=== PATIENT | female | born 1950 | race Caucasian/White ===

== ENCOUNTER → 2016-04-21 | Outpatient (CLI) | payer MEDICAID, OTHER ==
--- NOTE | 2016-04-21 11:33 | MA ---
Screening Digital Mammogram With Tomosynthesis Clinical Indications: Routine screening. Technique: Standard digital cephalocaudal and tomosynthesis mediolateral oblique projections are obt ained. The digital images were processed by the [employer] computer aided detection system. Comparison: February 2015 ,2013 and 2008 Breast density: B; There are scattered fibroglandular densities. Findings: CAD was reviewed. Possible small vague nodule with radiating architectural distortion centr al left breast (slice 41/73) the remainder of the left and right breast are stable.. Impression: Small nodule central left breast. Recommendation: Spot compression views in the CC and lateral, projection followed by ultrasound. BI-RADS 0: Needs additional imaging evaluation, left breast [facility] will send a result letter to the patient. Negative mammography should not preclude additional workup of a clinically suspicious finding. The patient's information is entered into a reminder system with a target due date for her next mammo gram.
== END ==
LOC: FIMAGING 09:57
DX: Z12.31 Encounter for screening mammogram for malignant neoplasm of breast (principal)
CPT/HCPCS: G0202

== ENCOUNTER → 2016-04-30 | Outpatient (CLI) | payer MEDICAID ==
--- NOTE | 2016-04-30 13:39 | MA ---
Diagnostic Digital Mammogram Left Breast With iCAD Analysis Reason for examination: Evaluate possible asymmetry with subtle architectural change in the central l eft breast noted on the screening tomosynthesis study April 21, 2016. Technique: Oblique and craniocaudal spot compression views are obtained. Also, a true lateral is perf ormed. The examination is processed by the iCAD computer-aided detection system. Comparison is made to older studies dating back to February 2009. Findings: A discrete abnormality does not persist on diagnostic assessment. Mild glandular asymmetrie s are seen. No suspicious microcalcifications are identified.. Impression: Mild glandular asymmetries require further evaluation, BI-RADS 0. Recommendation: Targeted left breast ultrasound which will be subsequently performed today. A verbal report was given to the patient. [facility] with send a result letter.
--- NOTE | 2016-04-30 14:07 | US ---
Left Breast Ultrasound History: Follow-up mild glandular asymmetry noted in the central left breast on diagnostic mammograph y performed earlier today. Technique: Longitudinal and transverse images were obtained utilizing a 15 MHz transducer. Examinati on is interpreted in conjunction with diagnostic mammography performed today as well as screening dig ital tomosynthesis April 21, 2016. Findings: No palpable abnormality is present. Sonographic interrogation of the central left breast de monstrates scattered fibroglandular elements. No solid or cystic mass is seen. A few mildly dilated d uctal elements are noted. Impression: Benign findings when considering mammographic and sonographic assessment, BI-RADS 2. Recommendation: Resume routine mammographic screening in one year as long as physical examination is negative.. Findings and follow-up recommendations were reviewed with the patient in detail. [facility] will send a result letter to the patient.
== END ==
LOC: FIMAGING 12:53
PROVIDERS: ATTEND Family Medicine
DX: R92.8 Other abnormal and inconclusive findings on diagnostic imaging of breast (principal)
CPT/HCPCS: G0206

== ENCOUNTER 2016-09-18 11:37 | Emergency (ER) | payer MEDICAID ==
[2016-09-18] MEDS ORDERED: CEPHALEXIN 500 MG CAP PO ONE (12:19)
--- NOTE | 2016-09-18 12:26 | EDPHY ---
H & P Stated Complaint: Right leg streakingx 3 days. Time Seen by Provider: 09/18/16 12:11 - Personal History Current Tetanus/Diphtheria Vaccine: Yes Current Tetanus Diphtheria and Acellular Pertussis (TDAP): Yes - Medical/Surgical History Hx Asthma: No Hx Chronic Respiratory Disease: No Hx Diabetes: No Hx Cardiac Disease: No Hx Renal Disease: No Hx Cirrhosis: No Hx Alcoholism: No Hx HIV/AIDS: No Hx Splenectomy or Spleen Trauma: No Other PMH: peripheral neuropathy. HTN. elevated cholesterol - Social History Smoking Status: Current some day smoker Constitutional: Initial Vital Signs Temperature (C) 36.8 C 09/18/16 11:52 Heart Rate 94 09/18/16 11:52 Respiratory Rate 15 09/18/16 11:52 Blood Pressure 117/82 H 09/18/16 11:52 O2 Sat (%) 94 09/18/16 11:52 O2 Delivery Mode Room Air Allergies/Adverse Reactions: No Known Allergies Allergy (Unverified 12/27/13 11:16) Home Medications: Medication Instructions Recorded Aspirin EC [Aspirin EC 81 mg (OTC)] 81 mg PO DAILY 12/27/13 Atenolol [Tenormin 25 mg (RX)] 25 mg PO DAILY 12/27/13 Cephalexin [Keflex] 500 mg PO TID 10 Days 12/27/13 Nortriptyline HCl [Pamelor 10 mg 10 mg PO HS 12/27/13 (RX)] Simvastatin [Zocor 20 mg (RX)] 20 mg PO DAILY18 12/27/13 Sulfamethox/Tmp 800/160 mg 1 tab PO BID@1000,2200 10 Days 12/27/13 [Bactrim Ds] Cephalexin [Keflex (RX)] 500 mg PO TID #30 cap 09/18/16 Medical Decision Making ED Course/Re-evaluation: CHIEF COMPLAINT: Streaking of right leg HISTORY OF PRESENT ILLNESS: 66-year-old immunocompetent female who is not diabetic. She has ulcers on her right foot because of fallen arches these ulcers have been chronic for years. She has a little bit of cellulitis around 1 of the ulcers the arch and then she has streaking up the medial right leg. She denies any fevers or chills or systemic illness. She denies any recent travel or pain or calf swelling or calf. She denies any injuries. She has the treadmill this morning without any difficulty however the red streaky areas are becoming slightly more painful. REVIEW OF SYSTEMS: A 10 point review of systems was performed and is negative with the exception of the elements mentioned in the history of present illness. PHYSICAL EXAM: HR, BP, O2 Sat, RR. Temp noted General Appearance: Alert, well hydrated, appropriate, and non-toxic appearing. Head: Atraumatic without scalp tenderness or obvious injury Eyes: Pupils equal, round, reactive to light and accommodation, EOMI, no trauma , no injection. Ears: Clear bilaterally, no perforation, normal landmarks Nose: Atraumatic, no rhinorrhea, clear. Throat: There is no erythema or exudates, no lesions, normal tonsils, mucus membranes moist. Neck: Supple, 2+ carotid upstroke, nontender, no lymphadenopathy. Respiratory: No retractions, no distress, no wheezes, and no accessory muscle use. Lungs are clear to auscultation bilaterally. Cardiovascular: Regular rate and rhythm, no murmurs, rubs, or gallops. Bilateral carotid, radial, dorsalis pedis, and posterior tibial pulses intact. Good capillary refill all extremities. Gastrointestinal: Abdomen is soft, nontender, non-distended, no masses, no rebound, no guarding, no peritoneal signs. Musculoskeletal: Normal active ROM of all extremities, atraumatic. Neurological: Alert, appropriate, and interactive. The patient has normal DTRs and non-focal cranial nerves, motor, sensory, and cerebellar exam. Skin: Lymphangitis from the medial right arch up to the right groin area with some shotty lymph nodes in the right groin. I cannot see any obvious source except for the ulcerations on the right foot which are chronic. She does take good care of him she is not diabetic. No rashes, good turgor, no nodules on palpation. Past medical history: Chronic foot ulcers Past surgical history: Noncontributory Family history: Noncontributory Social history: , retired, does not abuse tobacco drugs or alcohol DIFFERENTIAL DIAGNOSIS: Lymphangitis, cellulitis, trauma, bug bite, wound MEDICAL DECISION MAKING: This patient has a mild and early lymphangitis. She just noticed it a few hours ago. Most likely this is the source from the ulcer on her foot I cannot find another source but I also cannot be sure as the foot ulcer does not look terrible frankly. I will start her on Keflex 500 mg 3 times a day. I have asked her return if she gets worse at all or develops any systemic symptoms. In addition she will follow up with regular doctor in the next 2 days. Departure - Departure Disposition: Home, Routine, Self-Care Clinical Impression: Acute lymphangitis Condition: Good Instructions: Lymphangitis (ED) Additional Instructions: Follow up with your doctor in 2 days without fail return here for worse Referrals: Nery Victoria MD [Primary Care Provider] - As per Instructions Prescriptions: Cephalexin [Keflex (RX)] 500 mg PO TID #30 cap
[2016-09-18 12:58] VITALS: BP 117/76; PULSE 82; RESP 17; TEMP 98.1; O2SAT 96
== END 2016-09-18 12:57 | disposition home or self-care (01) ==
DX: L03.91 Acute lymphangitis, unspecified (principal); I10 Essential (primary) hypertension; F17.200 Nicotine dependence, unspecified, uncomplicated; Z79.82 Long term (current) use of aspirin

== ENCOUNTER 2016-10-19 09:33 | Inpatient (IN) | payer OTHER, MEDICAID ==
[2016-10-19] MEDS ORDERED: NS 500 ML IV ONE (10:05)
--- NOTE | 2016-10-19 10:12 | EDPHY ---
H & P Time Seen by Provider: 10/19/16 09:53 HPI/ROS: HPI From [facility], here for osteomyelitis of toe. 66-year-old female presents to the emergency department by private vehicle. She was sent over from [facility]. She had x-rays yesterday of her right 3rd toe secondary to an ulceration at the distal ventral aspect of the toe. The x-rays were diagnostic of osteomyelitis of the right 3rd toe. She has also had some erythema and warmth involving the medial aspect of her dorsal proximal foot and the medial aspect of the ankle. She denies fever. There is no history of trauma. She is not a diabetic. She has a history of peripheral neuropathy. ROS: Constitutional: No fever, no chills. No weakness. Eyes: No discharge. No changes in vision. ENT: No sore throat. No nasal congestion or rhinorrhea. Respiratory: No cough. No shortness of breath. Cardiac: No chest pain, no palpitations. Gastrointestinal: No abdominal pain, no vomiting, no diarrhea. Genitourinary: No hematuria. No dysuria or increased frequency with urination. Musculoskeletal: No back pain. No neck pain. As above. Skin: No rashes. As above. Neurological: No headache. No focal weakness or altered sensation. Past medical history: Peripheral neuropathy, hypertension, hyperlipidemia. Primary care is through [facility]. Social history: She is . Her is on his way. She is a smoker. Physical Exam: General Appearance: Alert, no distress. This patient is responding to questions appropriately and in full sentences. This patient appears well- hydrated and well-nourished. Eyes: Pupils equal and round no pallor or injection. No lid edema, erythema or injection. Right foot and ankle exam: Significant for a dime-sized ulceration at the tip and distal ventral aspect of the right 3rd toe with associated swelling and erythema involving that digit. She also has erythema and warmth noted on the dorsal aspect medial proximal foot spreading up through the medial aspect of the ankle. There is some warmth on palpation. No significant tenderness on palpation. The right foot is neurovascularly intact. Left foot and ankle exam: Normal. Respiratory: There are no retractions, lungs are clear to auscultation with good air movement bilaterally. Cardiovascular: Regular rate and rhythm. No murmur. Gastrointestinal: Abdomen is soft and nontender, no masses, bowel sounds normal. No focal tenderness at Burney's point. No Waite sign. Neurological: Motor sensory function is grossly intact. Cranial nerves are normal. Gait is normal. Skin: Warm and dry, no rashes. Extremities are symmetrical. All joints range without pain or impingement. Psychiatric: No agitation. No depression. Database: EKG: Imaging: Right foot and right 3rd toe x-ray series: Right 3rd toe significant for probable osteomyelitis. No acute fracture. Interpreted by me. Please see radiologist's report for further details. Procedures: Emergency department course: IV placed. Blood cultures were obtained. Imaging of the right foot obtained. Vital signs reviewed, she is afebrile, vital signs are normal. She is not in significant pain. Her medical records were reviewed. She was seen for a mild lymphangitis secondary to ulcerations on her right foot about a month ago on September 18. She was prescribed Keflex at that time. 10:45 a.m., patient has an initial venous lactate of 2.4. Otherwise she does not meet criteria for sepsis and therefore she does not meet criteria for severe sepsis even with this venous lactate. This will be repeated. Her x- rays have been reviewed by myself. She was started on IV vancomycin in the emergency department. 11:15 a.m., spoke with on-call hospitalist. Patient accepted for admission by Dr. Catherine. Patient given 1.5 g of IV vancomycin in the emergency department. Results of x-rays and blood work discussed with her and her . Need for admission discussed with her and her . They consent. Patient admitted to the hospitalist service in stable condition. 11:40 a.m., repeat venous lactate 1.6. Differential Diagnosis: The differential diagnosis on this patient includes but is not limited to osteomyelitis of the right 3rd toe, cellulitis of the right foot and right ankle , history of peripheral neuropathy. This represents a partial list of diagnoses considered. These considerations are based on history, physical exam , past history, reassessment and diagnostic testing. Smoking Status: Current some day smoker Constitutional: Initial Vital Signs Temperature (C) 36.6 C 10/19/16 09:46 Heart Rate 87 10/19/16 09:46 Respiratory Rate 16 10/19/16 09:46 Blood Pressure 114/72 10/19/16 09:46 O2 Sat (%) 94 10/19/16 09:46 O2 Delivery Mode Room Air Allergies/Adverse Reactions: No Known Allergies Allergy (Unverified 12/27/13 11:16) Home Medications: Medication Instructions Recorded Aspirin EC [Aspirin EC 81 mg (OTC)] 81 mg PO DAILY@12 12/27/13 Nortriptyline HCl [Pamelor 10 mg 10 mg PO HS 12/27/13 (RX)] Sulfamethox/Tmp 800/160 mg 1 tab PO BID@1000,2200 10 Days 12/27/13 [Bactrim Ds] Cephalexin [Keflex (RX)] 500 mg PO TID #30 cap 09/18/16 Ascorbic Acid [Vitamin C 500 mg 500 mg PO DAILY@12 10/19/16 (*)] Atenolol [Tenormin 100 mg (*)] 100 mg PO DAILY@10/19/16 Glucosamine/Chondroitin 1 each PO DAILY@10/19/16 [Glucosamine/Chondroitin (*)] Herbals/Supplements -Info Only 1 ea PO DAILY 10/19/16 [place]-3 Fatty Acids [Fish Oil 1000 1,000 mg PO DAILY@10/19/16 mg (*)] Simvastatin [Zocor] 40 mg PO DAILY@12 10/19/16 Triamterene/Hctz 75/50 [Maxzide 1 tab PO DAILY@10/19/16 75-50 mg Tab (*)] Medical Decision Making - Data Points Laboratory Results: Laboratory Results 10/19/16 10:20 10/19/16 10:20 Medications Given: Discontinued Medications Sodium Chloride (Ns) 500 mls @ 0 mls/hr IV ONCE ONE; Wide Open PRN Reason: Protocol Stop: 10/19/16 10:06 Last Admin: 10/19/16 10:35 Dose: 500 mls Vancomycin HCl 1.5 gm/ (Dextrose) 250 mls @ 166.67 mls/hr IV EDNOW ONE PRN Reason: Protocol Stop: 10/19/16 12:11 Last Admin: 10/19/16 11:18 Dose: 250 mls Departure - Departure Disposition: [facility] Clinical Impression: Right foot infection, Osteomyelitis right third toe, Cellulitis of right foot, History of peripheral neuropathy Condition: Fair
[2016-10-19 10:32] LABS: % IMMATURE GRANULYOCYTES 0.4 % (0.0-1.1); ABSOLUTE IMMATURE GRANULOCYTES 0.04 10^3/uL (0.00-0.10); ADD DIFF? NO; ADD MORPH? NO; ADD SCAN? NO; ATYPICAL LYMPHOCYTE FLAG 10 (0-99); FRAGMENT RBC FLAG 0 (0-99); HEMOGLOBIN 15.1 g/dL (12.6-16.3); LEFT SHIFT FLG 0 (0-99); LIPEMIA HEMOLYSIS FLAG 90 (0-99); MEAN CELL HEMOGLOBIN 33.9 pg (27.9-34.1); MEAN CELL HEMOGLOBIN CONCENTR. 35.1 g/dL (32.4-36.7); MEAN CELL VOLUME 96.6 fL (81.5-99.8); MEAN PLATELET VOLUME 8.9 fL (8.7-11.7); PLATELET CLUMPS FLAG 0 (0-99); PLATELET COUNT 230 10^3/uL (150-400); RED BLOOD CELL COUNT 4.45 10^6/uL (4.18-5.33); RED CELL DISTRIBUTION WIDTH 12.6 % (11.5-15.2)
[2016-10-19] MEDS ORDERED: VANCOMYCIN 1.5 GM in D5W 250 ML IV ONE (10:42)
[2016-10-19 10:49] LABS: ANION GAP 15 mEq/L (8-16); CALCIUM 9.8 mg/dL (8.5-10.4); CARBON DIOXIDE 22 mEq/l (22-31); CHLORIDE 103 mEq/L (97-110); CREATININE 0.8 mg/dL (0.6-1.0); GLOMERULAR FILTRATION RATE > 60; GLUCOSE 158 mg/dL (70-100); POTASSIUM 3.2 mEq/L (3.5-5.2); SODIUM 140 mEq/L (134-144)
[2016-10-19] MEDS ORDERED: LORazepam 0.5 MG TAB PO PRN (16:03)
[2016-10-19] MEDS ORDERED: ACETAMINOPHEN 325 MG TAB PO PRN (16:03)
[2016-10-19] MEDS ORDERED: ZOLPIDEM TARTRATE 5 MG TAB PO PRN (16:03)
[2016-10-19] MEDS ORDERED: LORazepam 2 MG/ML INJ IVP PRN (16:03)
[2016-10-19] MEDS ORDERED: oxyCODONE IR 5 MG TAB PO PRN (16:03)
[2016-10-19] MEDS ORDERED: ALBUTEROL 3 ML DEYVIAL IH PRN (16:03)
[2016-10-19] MEDS ORDERED: ONDANSETRON 4 MG/2 ML VIAL IVP PRN (16:03)
[2016-10-19] MEDS ORDERED: ONDANSETRON DISINTEGRATING 4 MG TAB PO PRN (16:03)
[2016-10-19] MEDS ORDERED: OXYCODONE/APAP 5/325 TAB PO PRN (16:03)
--- NOTE | 2016-10-19 16:33 | GHP ---
[f rep st] HISTORY AND PHYSICAL DATE OF ADMISSION: 10/19/2016 CHIEF COMPLAINT: Right 3rd toe infection. HISTORY OF PRESENT ILLNESS: A 66-year-old female with a known history of a peripheral neuropathy an d a previous history of a right 5th toe infection approximately 2 years [employer], presents with pain, swe lling and redness of her right 3rd toe. Approximately 1 month [employer], she was treated for an apparent cellulitis in this leg by her own physician with Keflex. She reports having redness ascending up th e medial aspect of the right leg from the foot. There is no history to indicate that the toes were in any way infected at that time. She took the Keflex and the problem resolved. In the interval, s he has been instructed by her utility repairer, Dr. Pierre in [place], to abrade the callus formations of her right foot which are present on the longitudinal arch and on the plantar surface. She has al so been and abrading some callus formation on her right 3rd toe of the same foot. Four days [employer], sh e again noted redness on the medial aspect of her leg and foot and at approximately the same time re dness, pain and swelling began on her right great toe. X-rays have initially indicated possible ost eomyelitis and she was referred for admission. 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 This has occurred without fever, chills, sweats or known tra cheryl other than as noted above with abrading calluses. She also has a known peripheral neuropathy si nce approximately the year 1999 of unclear etiology. The peripheral neuropathy is manifested by a l oss of sensation, a loss of soft touch and tingling and sometimes lightening electrical feelings in the evenings in her feet. For this, she takes imipramine. PAST MEDICAL HISTORY: Denies asthma, allergies, diabetes or renal problems. She does have a histor y of hypertension and hyperlipidemia. PAST SURGICAL HISTORY: History of a . ALLERGIES: None. FAMILY HISTORY: Possibly positive for early coronary artery disease in her father. It is negative for breast cancer, colon cancer, bleeding diathesis. SOCIAL HISTORY: She is , accompanied today by her . The patient does smoke cigarette s, approximately 5 and maybe 10 cigarettes per day for the last 30 years or more. At times, she has been drinking regularly on a daily basis up until 2014. She had been drinking on a daily basis but denies addiction or withdrawal symptoms. Today, she admits to having 2-3 drinks a day, approximate ly 2 or 3 times a week. She reports she does not drink daily. 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 Drugs: No use of marijuana or recreational drugs. MEDICATIONS: Include omega-3 fatty acids, glucosamine chondroitin sulfate, Maxzide 75-50 mg tablet, atenolol 100 mg, ASA 81 mg, ascorbic acid 500 mg daily, Zocor, nortriptyline 10 mg p.o. q.h.s., Kef chuy 500 mg t.i.d. and Bactrim DS 1 tablet p.o. b.i.d. PHYSICAL EXAMINATION: GENERAL: This is a pleasant, alert female who appears comfortable. VITAL SI GNS: Normal. She is afebrile with normal heart rate and respiratory rate. HEENT: Normal. NECK: Supple without meningismus. LUNGS: Clear without wheezing, rales, or rhonchi. HEART: Regular ra te and rhythm. Normal S1, S2. No murmur or gallop. ABDOMEN: Slightly overweight. Normoactive raven wel sounds. No masses, tenderness, organomegaly. EXTREMITIES: Significant for redness at approxim ately the mid calf level on the right leg. This redness then extends from the mid calf down mediall y to the dorsum of the right foot which is also red and slightly swollen. There is prominent swelli ng and erythema of the right 3rd toe. Additionally, the foot medially shows significant callus form ation on the longitudinal arch and on the plantar surface. There is no tenderness in the right ingu inal region. Pulses are 2+ at the femorals, dorsalis pedis, posterior tibial, and radials bilateral ly. LABORATORY: WBC is normal. Hemoglobin 15.5. BMP shows low potassium at 3.2. Lactate is slightly elevated at 2.4. Renal function judged to be normal. ASSESSMENT: 1. Acute cellulitis and osteomyelitis of the right foot and right 3rd toe. X-rays seem to confirm the findings of an osteomyelitis with possible air formation in the joint. She had been given a dos e of vancomycin 1.5 g, and this will be continued with levels monitored appropriately. Infectious D isease will be consulted. 2. Peripheral neuropathy manifested by lightening pains in her feet at night along with loss of sen sation to the level of the ankle in a stocking formation. It has been present for many years and wi ll continue her usual medications. 3. Hypertension. She is currently normotensive and will continue her usual medications. 4. The patient does not meet sepsis criteria. Even though her lactate is slightly elevated, this p robably represents a mild degree of dehydration. Will encourage a regular diet and fluid hydration. She is not tachypneic, tachycardic or febrile nor does she have an elevated white count. PLAN: The patient will be admitted to inpatient status. In light of the findings of osteomyelitis, she is likely to need placement of a PICC line, long-term antibiotics and possibly some debridement of this right 3rd toe. Podiatry will also be consulted. TIME BILLING: This required 50 minutes, greater than 50% to coordinate her care and arrange for con sultation. /[id number]/MODL
[2016-10-19] MEDS: NORTRIPTYLINE HCL 10 MG CAP PO SCH (20:33)
[2016-10-19] MEDS ORDERED: SULFAMETHOX/TMP 800/160 MG 1 TAB PO SCH (22:00)
[2016-10-19] MEDS: VANCOMYCIN HCL/NORMAL SALINE 250 ML IV SCH (22:20)
[2016-10-20 05:22] LABS: % IMMATURE GRANULYOCYTES 0.3 % (0.0-1.1); ABSOLUTE IMMATURE GRANULOCYTES 0.02 10^3/uL (0.00-0.10); ADD DIFF? NO; ADD MORPH? NO; ADD SCAN? NO; ATYPICAL LYMPHOCYTE FLAG 10 (0-99); FRAGMENT RBC FLAG 0 (0-99); HEMATOCRIT 39.4 % (38.0-47.0); HEMOGLOBIN 13.4 g/dL (12.6-16.3); LEFT SHIFT FLG 0 (0-99); LIPEMIA HEMOLYSIS FLAG 90 (0-99); MEAN CELL HEMOGLOBIN 33.7 pg (27.9-34.1); MEAN PLATELET VOLUME 9.3 fL (8.7-11.7); PLATELET CLUMPS FLAG 0 (0-99); PLATELET COUNT 212 10^3/uL (150-400); RED BLOOD CELL COUNT 3.98 10^6/uL (4.18-5.33); RED CELL DISTRIBUTION WIDTH 12.8 % (11.5-15.2)
[2016-10-20 05:38] LABS: ANION GAP 11 mEq/L (8-16); CALCIUM 8.6 mg/dL (8.5-10.4); CARBON DIOXIDE 25 mEq/l (22-31); CHLORIDE 109 mEq/L (97-110); CREATININE 0.8 mg/dL (0.6-1.0); GLOMERULAR FILTRATION RATE > 60; GLUCOSE 82 mg/dL (70-100); POTASSIUM 3.8 mEq/L (3.5-5.2); SODIUM 145 mEq/L (134-144)
[2016-10-20 06:31] LABS: COLOR YELLOW; LEUKOCYTE ESTERASE,URINE TRACE (NEGATIVE); NITRITE,URINE NEGATIVE (NEGATIVE)
[2016-10-20 06:40] LABS: MUCUS TRACE /lpf (NONE-1+); WBC,URINE 15-25 /hpf (0-3)
[2016-10-20] MEDS: ENOXAPARIN 40 MG/0.4 ML SYR SC SCH (08:37)
[2016-10-20] MEDS: MULTIVITAMINS 1 EACH TAB PO SCH (08:37)
--- NOTE | 2016-10-20 10:48 | HOSPPROG ---
Hospitalist Progress Note Assessment/Plan: 66 y/o female new to my care presenting with: #suspected rt 3rd toe osteomyelitis with cellulitis of the right leg #peripheral neuropathy #hypertension plan -mri right foot -cont IV vanco -ID consult -check a1c continue inpatient care Subjective: improved redness right leg. no fever or chills Objective: Vital Signs Temp Pulse Resp BP Pulse Ox 37.1 C 84 17 111/73 93 10/20/16 08:23 10/20/16 08:23 10/20/16 08:23 10/20/16 08:23 10/20/16 08:23 Laboratory Results 10/20/16 04:21 10/20/16 04:21 10/19/16 10/20/16 10/21/16 05:59 05:59 05:59 Intake Total 1025 Output Total 200 Balance 825 - Physical Exam Constitutional: no apparent distress, appears nourished, not in pain Ears, Nose, Mouth, Throat: moist mucous membranes, hearing normal, ears appear normal, no oral mucosal ulcers Cardiovascular: regular rate and rhythym, no murmur, rub, or gallop Respiratory: no respiratory distress, no rales or rhonchi, clear to auscultation Gastrointestinal: normoactive bowel sounds, soft, non-tender abdomen, no palpable masses Skin: other (circumfrential erythem and edema 3rd toe with mild erythem extending up right leg, ulcer on plantar surface) ICD10 Worksheet Patient Problems: Problems Problem Status Onset Right foot infection Acute Cellulitis of right foot Acute History of peripheral neuropathy Acute
[2016-10-20] MEDS: GLUCOSAMINE/CHONDROITIN CAP PO SCH (11:23)
[2016-10-20] MEDS: ATENOLOL 100 MG TAB PO SCH (11:23)
[2016-10-20] MEDS: TRIAMTERENE/HCTZ 75/50 1 EACH TAB PO SCH (11:23)
[2016-10-20] MEDS: OMEGA-3 FATTY ACIDS 1,000 MG CAP PO SCH (11:23)
[2016-10-20] MEDS: ASPIRIN EC 81 MG TAB PO SCH (11:24)
[2016-10-20] MEDS: VANCOMYCIN HCL/NORMAL SALINE 250 ML IV SCH ×2 (11:24→23:08)
[2016-10-20] MEDS: ATORVASTATIN CALCIUM 20 MG TAB PO SCH (11:24)
[2016-10-20] MEDS ORDERED: NON-FORMULARY NEW DRUG (Simvastatin [Zocor] 40 MG) PO SCH (12:00)
[2016-10-20 12:14] LABS: HEMOGLOBIN A1C 5.6 % (4.0-6.0)
[2016-10-20] MEDS: ASCORBIC ACID 500 MG TAB PO SCH (12:22)
--- NOTE | 2016-10-20 15:20 | WOCRNPDOC ---
WOCRN Advanced Assessment Note - Skin Integrity Problem, Advanced Assess Right Third Toe Dressing Type: Kerlix Dressing Description: Clean/Dry, Intact Exudate Amount: None Exudate Color: Yellow, Brown Wound Bed Constitution: Dried Exudate Site Measurement - Head-to-Toe Length X Width X Depth (cm): 1x1.3xunknown Skin Integrity Problem Comment: Distal toe is covered with dried exudate and wound bed cannot be visualized. Will initated antimicrobial autolytic debridement and recheck tomorrow. Patient to MRI today. Discussed plan with patient and ARCELIA Betancourt. Student RN's from [facility] in room today.
[2016-10-20] MEDS: NORTRIPTYLINE HCL 10 MG CAP PO SCH (21:38)
--- NOTE | 2016-10-21 02:39 | GCON ---
[f rep st] CONSULTATION INPATIENT INFECTIOUS DISEASE CONSULTATION REFERRING PHYSICIAN: Mahendra Villalba DO REASON FOR REFERRAL: Right foot 3rd toe distal tuft osteomyelitis. HISTORY OF PRESENT ILLNESS: Patient is a 66-year-old female with known peripheral neuropathy, who p resented to [facility] via the emergency department on 10/19/2016. Patient came in co mplaining of osteomyelitis of the toe. She was sent over from [facility] due to x-rays that she had of her right 3rd toe to toe chronic ulceration at the distal tuft. X-rays were diagnostic of osteomye litis of the distal phalanx of the right 3rd toe. The patient also had some mild erythema and warmt h involving the dorsum of her foot and medial aspect of the ankle, as well as medial calf. The paty ent notes she does not have a history of diabetes. She notes that the scab and callus have been on the distal aspect of her right 3rd toe for many months. PAST MEDICAL HISTORY: 1. Hypertension. 2. Hyperlipidemia. 3. Peripheral neuropathy. PAST SURGICAL HISTORY: Status post section. ANTIBIOTICS: Vancomycin. ALLERGIES: Patient has no known drug allergies. SOCIAL HISTORY: Patient is . Denies recreational drug use; however, she does note that she smoke cigarettes, approximately half-pack a day. She also has been drinking alcohol up until 3 year s ago. Currently, she drinks occasionally twice or 3 times a week. FAMILY HISTORY: Reviewed, but noncontributory. REVIEW OF SYSTEMS: Other than that detailed above in history of present illness, a comprehensive 10 -system review is negative. PHYSICAL EXAMINATION: VITAL SIGNS: Temperature maximum is 37.1, temperature currently is 36.7. He art rate is 86, respiratory rate is 16, blood pressure is 111/73. GENERAL: Patient is a well-forme d, well-nourished, older female, in no acute distress. She is not toxic in appearance. She is aler t and oriented x3. She is in a pleasant demeanor. HEENT: Normocephalic for age. Atraumatic. No scleral icterus. No oral lesion. No drainage from the nares. Eyes: Lids and conjunctivae are wit hin normal limits. Pupils are equal and round bilaterally. NECK: Supple. No meningismus. LUNGS: Clear to auscultation bilaterally with good effort. HEART: Regular rate and rhythm. No murmur, rub, or gallop noted. No significant peripheral edema. SKIN: Warm and dry to the touch. No rash noted. Patient has a dressed wound at the distal aspect of her right 3rd toe. Toe with no strike t hrough. No significant proximal erythema. MUSCULOSKELETAL: No other muscle belly tenderness is no robby. No joint line effusion or arthritis is seen. NEURO: Cranial nerves 2-12 seem to be intact. Peripheral sensation is diminished in bilateral lower extremities. LABORATORY DATA: The patient has a CBC dated 10/20/2016, shows a white blood cell count 6.5, hemogl obin of 13.4, hematocrit of 39.4, platelet count of 212. Differential is within normal limits. Ser um chemistry on 10/20/2016 shows sodium of 145, potassium of 3.8, chloride of 109, bicarbonate of 25 , BUN of 12, creatinine is 0.8. MICROBIOLOGIC DATA: Patient has blood cultures dated 10/19/2016 which are pending. ASSESSMENT: Right 3rd toe chronic ulcer and radiographic evidence of erosion of the distal end of t he distal phalanx of that toe. This is consistent with osteomyelitis. Discussed with patient the l ikelihood of her needing either amputative debridement or significant amount of resection of that to e. She is absorbing this news this morning. We will continue vancomycin monotherapy and obtain an MRI of the area. Patient has chronic changes of hammertoe in all of her digits of that foot, which is likely to continue to be a problem for her ongoing. Patient has a quilt stuffer in [place], Dr. Dutton, whom we will include in the reports for this admission. PLAN: 1. Continue vancomycin empirically. 2. Follow clinical course. 3. Follow up on results of the MRI. 4. Likely obtain surgery consult following MRI results. /[id number]/MODL
[2016-10-21 05:05] LABS: % IMMATURE GRANULYOCYTES 0.3 % (0.0-1.1); ABSOLUTE IMMATURE GRANULOCYTES 0.02 10^3/uL (0.00-0.10); ADD DIFF? NO; ADD MORPH? NO; ADD SCAN? NO; ATYPICAL LYMPHOCYTE FLAG 0 (0-99); FRAGMENT RBC FLAG 0 (0-99); HEMATOCRIT 41.7 % (38.0-47.0); HEMOGLOBIN 14.4 g/dL (12.6-16.3); LEFT SHIFT FLG 0 (0-99); LIPEMIA HEMOLYSIS FLAG 90 (0-99); MEAN CELL HEMOGLOBIN 34.3 pg (27.9-34.1); MEAN CELL HEMOGLOBIN CONCENTR. 34.5 g/dL (32.4-36.7); MEAN CELL VOLUME 99.3 fL (81.5-99.8); MEAN PLATELET VOLUME 8.9 fL (8.7-11.7); PLATELET CLUMPS FLAG 10 (0-99); PLATELET COUNT 209 10^3/uL (150-400); RED CELL DISTRIBUTION WIDTH 12.8 % (11.5-15.2)
[2016-10-21 05:23] LABS: ANION GAP 13 mEq/L (8-16); CALCIUM 9.2 mg/dL (8.5-10.4); CARBON DIOXIDE 24 mEq/l (22-31); CHLORIDE 108 mEq/L (97-110); CREATININE 0.8 mg/dL (0.6-1.0); GLOMERULAR FILTRATION RATE > 60; GLUCOSE 89 mg/dL (70-100); POTASSIUM 3.9 mEq/L (3.5-5.2); SODIUM 145 mEq/L (134-144)
[2016-10-21] MEDS: MULTIVITAMINS 1 EACH TAB PO SCH (08:20)
[2016-10-21] MEDS: ENOXAPARIN 40 MG/0.4 ML SYR SC SCH ×2 (08:20→20:45)
[2016-10-21] MEDS ORDERED: fentaNYL 100 MCG/2 ML INJ ONE (09:12)
[2016-10-21] MEDS ORDERED: MIDAZOLAM 2 MG/2 ML VIAL ONE (09:13)
--- NOTE | 2016-10-21 09:43 | WOCRNPDOC ---
WOCRN Advanced Assessment Note - Skin Integrity Problem, Advanced Assess Right Third Toe Dressing Type: Honey Sheet Dressing Description: Clean/Dry, Intact Integumentary Issue Intervention: Dressing Removed Josefina Wound Tissue: Macerated, Crusted, Calloused Wound Bed Constitution: Smooth Tissue, Dried Exudate Skin Integrity Problem Comment: Some of dried exudate is coming off revealing a clean wound bed measuring approximately 0.3x0.3x0.1. There remains a significant amount of callous/dried exudate though. Discussed plan with Dr. Betancourt who may consult surgery after MRI is read. Discussed care also with ARCELIA Betancourt. Dressing was left off to air area out as josefina wound tissue is a bit macerated. Wound care will follow.
[2016-10-21] MEDS: VANCOMYCIN HCL/NORMAL SALINE 250 ML IV SCH ×2 (11:33→22:42)
[2016-10-21] MEDS: TRIAMTERENE/HCTZ 75/50 1 EACH TAB PO SCH (11:34)
[2016-10-21] MEDS: ATENOLOL 100 MG TAB PO SCH (11:34)
[2016-10-21] MEDS: ASCORBIC ACID 500 MG TAB PO SCH (11:34)
[2016-10-21] MEDS: OMEGA-3 FATTY ACIDS 1,000 MG CAP PO SCH (11:34)
[2016-10-21] MEDS: GLUCOSAMINE/CHONDROITIN CAP PO SCH (11:34)
[2016-10-21] MEDS: ATORVASTATIN CALCIUM 20 MG TAB PO SCH (11:34)
[2016-10-21] MEDS: ASPIRIN EC 81 MG TAB PO SCH (11:34)
--- NOTE | 2016-10-21 13:23 | HOSPPROG ---
Hospitalist Progress Note Assessment/Plan: 66 y/o female new to my care presenting with: #suspected rt 3rd toe osteomyelitis with cellulitis of the right leg #peripheral neuropathy (ideopathic a1c normal) #hypertension plan -cont IV vanco -ID consult appreciated -general surgery consult -check tsh, b12, usha, spep to further w/u neuropathy continue inpatient care Subjective: no fever or chills. no pain. improving redness up right leg Objective: Vital Signs Temp Pulse Resp BP Pulse Ox 36.7 C 81 16 114/69 93 10/21/16 11:32 10/21/16 11:34 10/21/16 11:32 10/21/16 11:34 10/21/16 11:32 Laboratory Results 10/21/16 03:57 10/21/16 03:57 10/20/16 10/21/16 10/22/16 05:59 05:59 05:59 Intake Total 1025 2063 400 Output Total 200 1700 Balance 825 363 400 mri foot reviewed 1. Cellulitis of the right third toe, with abnormal marrow signal and enhancement of the middle and distal phalanges suspicious for osteomyelitis. No abscess. 2. Degenerative arthropathy at the second MTP joint. 3. Moderate degenerative changes at the tarsometatarsal articulation. Laboratory Tests 10/20/16 04:21 Hemoglobin A1c 5.6 ICD10 Worksheet Patient Problems: Problems Problem Status Onset Right foot infection Acute Cellulitis of right foot Acute History of peripheral neuropathy Acute
--- NOTE | 2016-10-21 14:45 | PCMIDPN ---
Assessment/Plan: Assessment: distal phalynx osteomyelitis R foot 3rd toe - proven by MRI. Patient will need to go to surgery for debridement/amputation. Will wait results of surgery. Meanwhile continue vancomycin monotherapy. Plan: 1. Continue vancomycin monotherapy. 2. Await results of OR debridement. 3. Duration to be decided is result of 2. Subjective: Patient is resting comfortably in her hospital bed. No new complaints. No fevers or chills Objective: Vancomycin #2 Vital Signs Temp Pulse Resp BP Pulse Ox 36.7 C 81 16 114/69 93 10/21/16 11:32 10/21/16 11:34 10/21/16 11:32 10/21/16 11:34 10/21/16 11:32 Laboratory Results 10/21/16 03:57 10/21/16 03:57 10/20/16 10/21/16 10/22/16 05:59 05:59 05:59 Intake Total 1025 2063 400 Output Total 200 1700 Balance 825 363 400 - Physical Exam General Appearance: WD/WN, alert, no apparent distress, non-toxic Respiratory: lungs clear, normal breath sounds, No respiratory distress Cardiac/Chest: regular rate, rhythm, No tachycardia Extremities: non-tender, inflammation, erythema, No normal inspection Skin: normal color, warm/dry, No rash Neuro/Psych: alert, normal mood/affect, oriented x 3 ICD10 Worksheet Patient Problems: Problems Problem Status Onset Cellulitis of right foot Acute History of peripheral neuropathy Acute Right foot infection Acute
--- NOTE | 2016-10-21 19:06 | GCON ---
[f rep st] CONSULTATION DATE OF CONSULTATION: 10/21/2016 REFERRING PHYSICIAN: Mahendra Villalba DO REQUESTING PHYSICIAN: Dr. Mahendra Villalba D.O. REASON FOR REQUEST: Osteomyelitis, right 3rd toe. HISTORY OF PRESENT ILLNESS: The patient is a 66-year-old woman with known peripheral neuropathy. S he presented to the hospital on October 19, 2016, due to pain, swelling and redness of her 3rd toe. Sh andrew has history of a recent cellulitis and has been treated with Keflex. 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 She reports that she had a callus formation on her right 3rd toe, and this was debrided. PAST MEDICAL HISTORY: Hypertension, hyperlipidemia, peripheral neuropathy. PAST SURGICAL HISTORY: . ALLERGIES: No known drug allergies. FAMILY HISTORY: Coronary artery disease. SOCIAL HISTORY: She is . She does use 5-10 cigarettes per day. She does also drink 2-3 alex erages 2-3 times per week. MEDICATIONS: Reviewed. REVIEW OF SYSTEMS: 10-point review of systems negative, other than HPI. PHYSICAL EXAMINATION: VITAL SIGNS: 36.8, 73, 111/69, 16, 93% on room air. GENERAL: Pleasant, wel l-nourished, well-groomed woman, sitting up on gurney. HEENT: Normocephalic. No gross hearing def icits. Mucous membranes moist. Pupils equal and round. No scleral icterus. LUNGS: Clear to ausc ultation bilaterally. No increased work of breathing. CARDIAC: Regular rate. She does have palpa ble pulse on her right foot. ABDOMEN: Deferred. SKIN: Previous area of erythema marked is now pa le. She has an ulcer on the plantar aspect of the 1st metatarsal head as well as on the medial arch . MUSCULOSKELETAL: Her right 3rd toe is inflamed and indurated. There is also skin breakdown on t he medial aspect. NEURO: Neuropathy in the feet. PSYCH: Mood and affect normal. LABORATORY: Results reviewed. I personally reviewed the results of the lower extremity MRI which s howed cellulitis as well as edema, signal enhancement of the middle and distal 3rd phalanges. IMPRESSION AND PLAN: The patient is a 66-year-old woman with neuropathy who has osteomyelitis of he r 3rd toe. I will take her to the operating room for amputation of the 3rd toe and proximal metatar claire head. The risks and benefits including, but not limited to, stroke, heart attack, , blood clots, infection, bleeding, damage to surrounding structures were all discussed. She had her rosalvai ons answered to her satisfaction. /[id number]/MODL
[2016-10-21] MEDS: NORTRIPTYLINE HCL 10 MG CAP PO SCH (21:00)
[2016-10-22 05:06] LABS: % IMMATURE GRANULYOCYTES 0.4 % (0.0-1.1); ABSOLUTE IMMATURE GRANULOCYTES 0.03 10^3/uL (0.00-0.10); ADD DIFF? NO; ADD MORPH? NO; ADD SCAN? NO; ATYPICAL LYMPHOCYTE FLAG 10 (0-99); FRAGMENT RBC FLAG 0 (0-99); HEMATOCRIT 40.7 % (38.0-47.0); LEFT SHIFT FLG 0 (0-99); LIPEMIA HEMOLYSIS FLAG 90 (0-99); MEAN CELL HEMOGLOBIN 33.5 pg (27.9-34.1); MEAN CELL HEMOGLOBIN CONCENTR. 34.4 g/dL (32.4-36.7); MEAN CELL VOLUME 97.4 fL (81.5-99.8); MEAN PLATELET VOLUME 8.9 fL (8.7-11.7); PLATELET CLUMPS FLAG 10 (0-99); PLATELET COUNT 221 10^3/uL (150-400); RED BLOOD CELL COUNT 4.18 10^6/uL (4.18-5.33); RED CELL DISTRIBUTION WIDTH 12.5 % (11.5-15.2)
[2016-10-22 05:29] LABS: ANION GAP 14 mEq/L (8-16); CALCIUM 9.1 mg/dL (8.5-10.4); CARBON DIOXIDE 20 mEq/l (22-31); CHLORIDE 109 mEq/L (97-110); CREATININE 0.7 mg/dL (0.6-1.0); GLOMERULAR FILTRATION RATE > 60; GLUCOSE 95 mg/dL (70-100); POTASSIUM 3.8 mEq/L (3.5-5.2); SODIUM 143 mEq/L (134-144)
[2016-10-22] MEDS: MULTIVITAMINS 1 EACH TAB PO SCH (08:30)
--- NOTE | 2016-10-22 10:08 | SOAPPROG ---
SOAP Progress Note Assessment/Plan: Assessment: No changes overnight, will proceed with amputation 3rd right toe. Length of abx per ID Plan: 10/22/16 10:08 Objective: Vital Signs Temp Pulse Resp BP Pulse Ox 36.7 C 71 16 103/59 L 92 10/22/16 07:40 10/22/16 07:40 10/22/16 07:40 10/22/16 07:40 10/22/16 07:40 Laboratory Results 10/22/16 04:43 10/22/16 04:43 10/21/16 10/22/16 10/23/16 05:59 05:59 05:59 Intake Total 2063 1300 260 Output Total 1700 1200 Balance 363 100 260 ICD10 Worksheet Patient Problems: Problems Problem Status Onset Cellulitis of right foot Acute History of peripheral neuropathy Acute Right foot infection Acute
--- NOTE | 2016-10-22 10:34 | HOSPPROG ---
Hospitalist Progress Note Assessment/Plan: 66 y/o female new to my care presenting with: #suspected rt 3rd toe (mid/distal phalange) osteomyelitis with cellulitis of the right leg #peripheral neuropathy (ideopathic a1c normal, tsh nml, usha pending, b12 normal , spep pending) #hypertension plan -cont IV vanco -ID consult appreciated -plan for OR today 10/22 -oupt podiatry followup -consider outpt neurology referral to further [place] sotelo neuropathy continue inpatient care Subjective: no fever or chills. improving redness in right leg. no acute complaints Objective: Vital Signs Temp Pulse Resp BP Pulse Ox 36.7 C 71 16 103/59 L 92 10/22/16 07:40 10/22/16 07:40 10/22/16 07:40 10/22/16 07:40 10/22/16 07:40 Laboratory Results 10/22/16 04:43 10/22/16 04:43 10/21/16 10/22/16 10/23/16 05:59 05:59 05:59 Intake Total 2063 1300 260 Output Total 1700 1200 Balance 363 100 260 gen nad cv rrr pulm clear abd soft +bs rt leg with resolving erythma extending up ankle ICD10 Worksheet Patient Problems: Problems Problem Status Onset Right foot infection Acute Cellulitis of right foot Acute History of peripheral neuropathy Acute
[2016-10-22] MEDS ORDERED: BUPIVACAINE 0.5% 30 ML SDV ONE (10:44)
[2016-10-22] MEDS ORDERED: LR 1,000 ML IV ONE (11:33)
[2016-10-22] MEDS: VANCOMYCIN HCL/NORMAL SALINE 250 ML IV SCH ×2 (11:41→22:21)
[2016-10-22] MEDS ORDERED: MIDAZOLAM 2 MG/2 ML VIAL IVP ONE ×2 (12:06→12:15)
--- NOTE | 2016-10-22 12:10 | PDANEPAE ---
ANE History of Present Illness toe ANE Past Medical History - Cardiovascular History Hx Hypertension: Yes Hx Arrhythmias: No Hx Chest Pain: No Hx Coronary Artery / Peripheral Vascular Disease: No Hx CHF / Valvular Disease: No Hx Palpitations: No - Pulmonary History Hx COPD: No Hx Asthma/Reactive Airway Disease: No Hx Recent Upper Respiratory Infection: No Hx Oxygen in Use at Home: No Hx Sleep Apnea: No Sleep Apnea Screening Result - Last Documented: Negative - Endocrine History Hx Diabetes: No - Renal History Hx Renal Disorders: No - Liver History Hx Hepatic Disorders: No - Neurological & Psychiatric Hx Hx Neurological and Psychiatric Disorders: No - Cancer History Hx Cancer: No - Chronic Pain History Chronic Pain: No ANE Review of Systems - Exercise capacity Exercise capacity: >=4 METS ANE Patient History - Allergies Allergies/Adverse Reactions: No Known Allergies Allergy (Unverified 12/27/13 11:16) - Home Medications Home Medications: Aspirin EC [Aspirin EC 81 mg (OTC)] 81 mg PO DAILY@12/27/13 [Last Taken 10/18] Nortriptyline HCl [Pamelor 10 mg (RX)] 10 mg PO 12/27/13 [Last Taken 10/18/16 ] Ascorbic Acid [Vitamin C 500 mg (*)] 500 mg PO DAILY@10/19/16 [Last Taken ] Atenolol [Tenormin 100 mg (*)] 100 mg PO DAILY@10/19/16 [Last Taken 10/18/16] Glucosamine/Chondroitin [Glucosamine/Chondroitin (*)] 1 each PO DAILY@ [Last Taken 10/18/16] Herbals/Supplements -Info Only 1 ea PO DAILY 10/19/16 [Last Taken Unknown] [place]-3 Fatty Acids [Fish Oil 1000 mg (*)] 1,000 mg PO DAILY@10/19/16 [Last Taken 10/18/16] Simvastatin [Zocor] 40 mg PO DAILY@10/19/16 [Last Taken 10/18/16] Triamterene/Hctz 75/50 [Maxzide 75-50 mg Tab (*)] 1 tab PO DAILY@10/19/16 [ Last Taken 10/18/16] - NPO status NPO Since - Liquids (Date): 10/22/16 NPO Since - Liquids (Time): 00:01 NPO Since - Solids (Date): 10/22/16 NPO Since - Solids (Time): 00:01 - Anes Hx Anes Hx: no prior problems - Smoking Hx Smoking Status: Current some day smoker ANE Labs/Vital Signs - Labs Result Diagrams: 10/22/16 04:43 10/22/16 04:43 - Vital Signs Blood Pressure: 129/78 Heart Rate: 71 Respiratory Rate: 16 O2 Sat (%): 95 Height: 170.18 cm Weight: 72.575 kg ANE Physical Exam - Airway Mallampati Score: Class 2 - Pulmonary Pulmonary: no respiratory distress - Cardiovascular Cardiovascular: regular rate and rhythym - ASA Status ASA Status: II
[2016-10-22] MEDS ORDERED: fentaNYL 100 MCG/2 ML INJ ONE (12:18)
[2016-10-22] MEDS ORDERED: KETOROLAC 30 MG/1 ML SDV ONE (12:18)
[2016-10-22] MEDS ORDERED: PROPOFOL/EMULSION 500 MG/50 ML BOTTLE IV ONE (12:18)
[2016-10-22] MEDS ORDERED: DEXAMETHASONE 4 MG/ML VIAL ONE (12:18)
[2016-10-22] MEDS ORDERED: ONDANSETRON 4 MG/2 ML VIAL ONE (12:18)
[2016-10-22] MEDS ORDERED: LIDOCAINE 2% 5 ML SDV ONE (12:18)
[2016-10-22] MEDS ORDERED: LIDOCAINE 1% 300 MG/30 ML SDV ONE (12:19)
[2016-10-22] MEDS ORDERED: LR 500 ML IV PRN (12:40)
[2016-10-22] MEDS ORDERED: fentaNYL 100 MCG/2 ML INJ IVP PRN (12:40)
[2016-10-22] MEDS ORDERED: PROMETHAZINE HCL 25 MG/ML INJ IVP PRN (12:40)
[2016-10-22] MEDS ORDERED: HYDROmorphONE/DILAUDID 1 MG/ML SYR IVP PRN (12:40)
[2016-10-22] MEDS ORDERED: NALOXONE HCL 0.4 MG/ML INJ IVP PRN (12:40)
[2016-10-22] MEDS ORDERED: MEPERIDINE 25 MG/ML SYR IVP PRN (12:40)
--- NOTE | 2016-10-22 13:02 | POSTOPPROG ---
Post Op Note Date of Operation: 10/22/16 Surgeon: Missy Hernandez Chemical Engineering Teacher: mumtaz Anesthesiologist: clyde Anesthesia: IV Sedation Pre-op Diagnosis: osteomylitis Post-op Diagnosis: same Indication: 66 yo with osteo right 3rd toe Procedure: amputation right 3rd toe and met head Findings: strong bone, good blood supply Inf/Abcess present in the surg proc area at time of surgery?: Yes Depth: Deep Incisional (Fascial) EBL: Minimal Specimen(s): path and micro
--- NOTE | 2016-10-22 13:05 | POSTANESTH ---
Post Anesthetic Evaluation Cardiovascular Status: Normal, Stable Respiratory Status: Normal, Stable Level of Consciousness/Mental Status: Can Participate in Eval Pain Control: Adequate, Prn Tx Ordered Nausea/Vomiting Control: Adequate, Prn Tx Ordered Complications Possibly Related to Anesthesia: None Noted
--- NOTE | 2016-10-22 13:24 | GOP ---
[f rep st] OPERATIVE REPORT DATE OF OPERATION: 10/22/2016 SURGEON: Missy Hernandez MD ANESTHESIA: Nikolay Gee MD/monitored anesthesia care with IV sedation. PREOPERATIVE DIAGNOSIS: Right 3rd toe osteomyelitis. POSTOPERATIVE DIAGNOSIS: Right 3rd toe osteomyelitis. PROCEDURE PERFORMED: Amputation right 3rd toe and metatarsal head. FINDINGS: osteomylitis phalynx SPECIMENS: Pathology and Microbiology. ESTIMATED BLOOD LOSS: 10 cc. INDICATIONS: The patient is a 66-year-old woman with neuropathy, who developed osteomyelitis of her 3rd toe. DESCRIPTION OF PROCEDURE: The patient was brought into the operating room, placed supine on the table, and monitored anesthesia care with IV sedation was performed. Her foot was prepped and draped in the usual sterile fashion. I infiltrated the area with 10 cc of 0.5% Marcaine mixed with 1% lidocaine, using a digital block. I made an incision around the base of her 3rd toe and extended it onto the dorsal surface of her foot. I dissected down through the skin and subcutaneous tissues with electrocautery. I lifted these away with [place]. I amputated the 3rd toe and submitted this to Pathology. I obtained a specimen and sent this for microbiology, and using the saw I amputated the metatarsal head with the saw. This was inked proximal and sent to Pathology. Hemostasis was achieved. The deep layer was closed with 2-0 Vicryl. Skin closed with 2-0 nylon. Dressing and tape were applied. She was awakened in the operating room, transferred to PACU in stable condition. /[id number]/MODL MTDD
[2016-10-22] MEDS: TRIAMTERENE/HCTZ 75/50 1 EACH TAB PO SCH (14:48)
[2016-10-22] MEDS: GLUCOSAMINE/CHONDROITIN CAP PO SCH (14:48)
[2016-10-22] MEDS: ASPIRIN EC 81 MG TAB PO SCH (14:48)
[2016-10-22] MEDS: ASCORBIC ACID 500 MG TAB PO SCH (14:48)
[2016-10-22] MEDS: ATENOLOL 100 MG TAB PO SCH (14:49)
[2016-10-22] MEDS: OMEGA-3 FATTY ACIDS 1,000 MG CAP PO SCH (14:49)
[2016-10-22] MEDS: ATORVASTATIN CALCIUM 20 MG TAB PO SCH (14:51)
--- NOTE | 2016-10-22 19:06 | PCMIDPN ---
Assessment/Plan: Assessment/Plan: * Right 3rd toe osteomyelitis status post amputation: Gram stain shows 1+ GPC. Discussed operative findings with Dr. Hernandez with likelihood that osteomyelitis has been surgically excised. Will continue vancomycin in interim. Consider transition to oral doxycycline tomorrow while bone pathology is pending with outpatient follow-up. Patient has 2 additional ulcerations over her right foot which poses additional risk of osteomyelitis in the future. 10/22/16 19:04 Subjective: Status post amputation of right 3rd toe. Operative findings reviewed. Objective: Vital Signs Temp Pulse Resp BP Pulse Ox 36.8 C 77 18 107/60 90 L 10/22/16 17:19 10/22/16 17:19 10/22/16 17:19 10/22/16 17:19 10/22/16 17:19 Microbiology 10/22/16 12:39 Gram Stain - Final Unspecified Laboratory Results 10/22/16 04:43 10/22/16 04:43 10/21/16 10/22/16 10/23/16 05:59 05:59 05:59 Intake Total 2063 1300 960 Output Total 1700 1200 900 Balance 363 100 60 Gram stain with 1+ GPC Blood cultures x2 no growth - Physical Exam General Appearance: alert, no apparent distress EENT: No scleral icterus Extremities: inflammation ( right 3rd toe dressed postoperatively; no surrounding erythema) Skin: other ( ulceration at base of great toe and over medial aspect of foot on right with chronic callus formation) Lymphatic: other ( no lymphangitis right lower extremity) ICD10 Worksheet Patient Problems: Problems Problem Status Onset Cellulitis of right foot Acute History of peripheral neuropathy Acute Right foot infection Acute
[2016-10-22] MEDS: NORTRIPTYLINE HCL 10 MG CAP PO SCH (20:48)
[2016-10-23] MEDS: MULTIVITAMINS 1 EACH TAB PO SCH (08:50)
--- NOTE | 2016-10-23 10:41 | SOAPPROG ---
SOAP Progress Note Assessment/Plan: Assessment: POD # 1 s/p amputation right 3rd toe Abx per ID - no gross purulence at surgery Path and micro pending May shower without protecting wound Antibiotic ointment and gauze dressing over wound Ambulate short distances only with boot Decrease or stop smoking to improve wound healing F/U Dr. Hernandez in 7-10 days Sutures out in 14-21 days S: Feeling well. No pain Incision cdi. No erythema Plan: 10/22/16 10:08 10/23/16 10:39 Objective: Vital Signs Temp Pulse Resp BP Pulse Ox 36.8 C 76 16 93/63 L 91 L 10/23/16 07:40 10/23/16 07:40 10/23/16 07:40 10/23/16 07:40 10/23/16 07:40 Microbiology 10/22/16 12:39 Gram Stain - Final Unspecified Laboratory Results 10/22/16 04:43 10/22/16 04:43 10/22/16 10/23/16 10/24/16 05:59 05:59 05:59 Intake Total 1300 1680 Output Total 1200 900 Balance 100 780 ICD10 Worksheet Patient Problems: Problems Problem Status Onset Cellulitis of right foot Acute History of peripheral neuropathy Acute Right foot infection Acute
[2016-10-23] MEDS: VANCOMYCIN HCL/NORMAL SALINE 250 ML IV SCH (10:59)
--- NOTE | 2016-10-23 11:28 | PCMIDPN ---
Assessment/Plan: Assessment/Plan: * Right 3rd toe osteomyelitis status post amputation: Culture with growth of Staphylococcus aureus with susceptibility pending. Will plan 7 days of oral doxycycline 100 mg twice daily to assess for margins. Advised patient of potential for photosensitivity or esophagitis with doxycycline and need to avoid concomitant calcium intake. Will arrange for follow-up in our office approximately 10 days for repeat assessment review of pathology findings. 10/23/16 11:25 Subjective: Patient without specific complaints. Objective: Vital Signs Temp Pulse Resp BP Pulse Ox 36.8 C 76 16 93/63 L 91 L 10/23/16 07:40 10/23/16 07:40 10/23/16 07:40 10/23/16 07:40 10/23/16 07:40 Microbiology 10/22/16 12:39 Gram Stain - Final Unspecified Laboratory Results 10/22/16 04:43 10/22/16 04:43 10/22/16 10/23/16 10/24/16 05:59 05:59 05:59 Intake Total 1300 1680 Output Total 1200 900 Balance 100 780 Vancomycin # 4 Operative culture with growth of Staphylococcus aureus - Physical Exam General Appearance: alert, no apparent distress Extremities: inflammation (Right foot amputation site with intact suture line; mild erythema over dorsum of foot adjacent amputation with associated warmth; no tenderness present) Lymphatic: other (No right lower extremity lymphangitis) ICD10 Worksheet Patient Problems: Problems Problem Status Onset Cellulitis of right foot Acute History of peripheral neuropathy Acute Right foot infection Acute
[2016-10-23 12:19] VITALS: BP 106/61; RESP 18; TEMP 97.9; O2SAT 92
[2016-10-23] MEDS: ASCORBIC ACID 500 MG TAB PO SCH (12:45)
[2016-10-23] MEDS: ATENOLOL 100 MG TAB PO SCH (12:45)
[2016-10-23] MEDS: ASPIRIN EC 81 MG TAB PO SCH (12:45)
[2016-10-23] MEDS: GLUCOSAMINE/CHONDROITIN CAP PO SCH (12:46)
[2016-10-23] MEDS: OMEGA-3 FATTY ACIDS 1,000 MG CAP PO SCH (12:46)
[2016-10-23] MEDS: ATORVASTATIN CALCIUM 20 MG TAB PO SCH (12:46)
[2016-10-23] MEDS: TRIAMTERENE/HCTZ 75/50 1 EACH TAB PO SCH (12:46)
[2016-10-23 12:47] VITALS: PULSE 87
--- NOTE | 2016-10-23 22:35 | GDS ---
[f rep st] DISCHARGE SUMMARY DISCHARGE DIAGNOSES: 1. Right third toe osteomyelitis and cellulitis. 2. Peripheral neuropathy. 3. Hypertension. HISTORY: This is a 66-year-old female, presenting with right foot swelling and pain. HOSPITAL COURSE: The patient was admitted. An MRI was done, which did suggest osteomyelitis of the third toe. Infectious Disease was consulted. She was started and IV antibiotics. She did undergo amputation of that toe. Surgery felt that she did have negative margins. Culture was positive for Staph. Infectious Disease felt that she could be treated with oral antibiotics until the final pat hology was out. She is going to be discharged home on to doxycycline with close followup with Infec tious Disease. TIME SPENT: Greater than 30 minutes was spent on discharge. /[id number]/MODL
== END 2016-10-23 13:20 | disposition home or self-care (01) | DRG 505 ==
LOC: F1N 13:18
PROVIDERS: ADMIT Internal Medicine Pulmonary Disease; ATTEND Internal Medicine Pulmonary Disease
PROC: 0Y6T0Z1 Detachment at Right 3rd Toe, High, Open Approach (ICD-10-PCS; principal; 2016-10-22 12:00)
DX: M86.171 Other acute osteomyelitis, right ankle and foot (principal); L03.031 Cellulitis of right toe; G62.9 Polyneuropathy, unspecified; I10 Essential (primary) hypertension; E78.5 Hyperlipidemia, unspecified; A49.01 Methicillin susceptible Staphylococcus aureus infection, unspecified site
CPT/HCPCS: 82607-90; 96365; 97161-GP; G8978-GP-CI; G8979-GP-CI; G8980-GP-CI; J1100; J1650; J1885; J2250; J2405; J2704; J3010; J3370

== ENCOUNTER → 2016-11-23 | Outpatient (CLI) | payer OTHER, MEDICAID ==
[~2016-11-23] MED LIST: GADOBUTROL 10 ML VIAL IVP ONE
== END ==
LOC: FIMAGING 11:20
PROVIDERS: ATTEND Internal Medicine Infectious Disease
DX: L03.115 Cellulitis of right lower limb (principal); L97.519 Non-pressure chronic ulcer of other part of right foot with unspecified severity
CPT/HCPCS: 73720; A9585

== ENCOUNTER → 2017-03-24 | Outpatient (CLI) | payer OTHER, MEDICAID | LOC: FIMAGING 11:47 | PROVIDERS: ATTEND Internal Medicine Infectious Disease | DX: L03.031 Cellulitis of right toe (principal); M86.171 Other acute osteomyelitis, right ankle and foot; M19.071 Primary osteoarthritis, right ankle and foot ==

== ENCOUNTER → 2017-05-10 | Outpatient (CLI) | payer OTHER, MEDICAID | LOC: FIMAGING 14:34 | PROVIDERS: ATTEND Family Medicine | DX: Z12.31 Encounter for screening mammogram for malignant neoplasm of breast (principal) ==

== ENCOUNTER → 2018-05-17 | Outpatient (CLI) | payer OTHER, MEDICAID | LOC: FIMAGING 10:17 ==